=== PATIENT | male | born 1930 | race Caucasian/White ===

== ENCOUNTER → 2016-04-09 | Outpatient (CLI) | payer OTHER ==
[~2016-04-09] MED LIST: POTA10IN PO; TAMS0.4C36 PO; TRAV0.00 EACHEYE
[2016-04-09 07:32] LABS: BUN/Creatinine Ratio 16.9; Calcium 9.2 mg/dL (8.5-10.1); Potassium 4.1 mmol/L (3.5-5.1)
== END | disposition home or self-care (01) ==
LOC: LAB 06:44
PROVIDERS: ATTEND Internal Medicine
DX: E05.80 Other thyrotoxicosis without thyrotoxic crisis or storm (principal)
CPT/HCPCS: 36415; 80048; 83036; 84443

== ENCOUNTER → 2017-01-16 | Outpatient (CLI) | payer OTHER ==
[~2017-01-16] VITALS: Ht 170.2 cm; Wt 70.8 kg
[~2017-01-16] MED LIST changes: +ADENOSINE 60 MG in GIVE UN-DILUTED 0 ML IV ONE; +ASPI-231 PO; +ATO40T PO; +CLOP75TA41 PO; +FURO20TA3 PO; +METF-370 PO; +METO25TA5 PO; +METR500T PO; +POTA-167 PO; -POTA10IN PO; -TAMS0.4C36 PO
== END | disposition home or self-care (01) ==
LOC: XY 07:45
PROVIDERS: ATTEND Internal Medicine Cardiovascular Disease
DX: I20.9 Angina pectoris, unspecified (principal); E11.9 Type 2 diabetes mellitus without complications; I50.9 Heart failure, unspecified
CPT/HCPCS: 78452; 93017; A9500; J0153

== ENCOUNTER → 2017-03-18 | Outpatient (CLI) | payer OTHER ==
[~2017-03-18] MED LIST changes: -ADENOSINE 60 MG in GIVE UN-DILUTED 0 ML IV ONE
[2017-03-18 11:54] LABS: Basophils # (auto) 0.1 uL; Eosinophils # (auto) 0.5 uL; Eosinophils % (auto) 5.7 % (0.0-7.0); Hemoglobin 11.1 g/dL (13.5-17.5); Lymphocytes # (auto) 1.9 uL; Lymphocytes % (auto) 21.4 % (10.0-50.0); Mean Corpuscular Hemoglobin 31.9 pg (28.0-32.0); Mean Corpuscular Hgb Conc. 33.8 g/dL (32.0-36.0); Mean Corpuscular Volume 94.6 fL (80.0-100.0); Monocytes # (auto) 0.6 uL; Monocytes % (auto) 6.5 % (0.0-12.0); Neutrophils # (auto) 5.8 uL; Neutrophils % (auto) 65.4 % (37.0-80.0); Platelet Count (auto) 432 10^3/uL (140-450); Red Blood Cells 3.49 10^6/uL (4.5-5.90); Red Cell Distribution Width 14.7 % (11.8-14.3); White Blood Cell 8.8 10^3/uL (4.4-10.8)
== END | disposition home or self-care (01) ==
LOC: LAB 09:53
PROVIDERS: ATTEND Internal Medicine Cardiovascular Disease
DX: I20.9 Angina pectoris, unspecified (principal); R53.1 Weakness
CPT/HCPCS: 36415; 84443; 85025

== ENCOUNTER → 2017-04-09 | Outpatient (CLI) | payer OTHER ==
[2017-04-09 09:12] LABS: Basophils # (auto) 0.1 uL; Eosinophils % (auto) 9.8 % (0.0-7.0); Hematocrit 36.3 % (41.0-53.0); Hemoglobin 12.1 g/dL (13.5-17.5); Lymphocytes # (auto) 2.4 uL; Lymphocytes % (auto) 23.5 % (10.0-50.0); Mean Corpuscular Hemoglobin 31.6 pg (28.0-32.0); Mean Corpuscular Hgb Conc. 33.3 g/dL (32.0-36.0); Monocytes % (auto) 9.9 % (0.0-12.0); Neutrophils # (auto) 5.7 uL; Neutrophils % (auto) 55.8 % (37.0-80.0); Nucleated Red Blood Cells % 0.1 %; Platelet Count (auto) 266 10^3/uL (140-450); Red Blood Cells 3.82 10^6/uL (4.5-5.90); Red Cell Distribution Width 15.2 % (11.8-14.3); White Blood Cell 10.1 10^3/uL (4.4-10.8)
[2017-04-09 09:25] LABS: BUN/Creatinine Ratio 14.2; Calcium 9.2 mg/dL (8.5-10.1); Potassium 4.6 mmol/L (3.5-5.1)
[2017-04-09 10:20] LABS: Free T4 (Free Thyroxine) 1.07 ng/dL (0.89-1.76); T3 Total 0.99 ng/mL (0.60-1.81)
== END | disposition home or self-care (01) ==
LOC: LAB 07:50
PROVIDERS: ATTEND Internal Medicine
DX: I25.10 Atherosclerotic heart disease of native coronary artery without angina pectoris (principal); R53.1 Weakness
CPT/HCPCS: 36415; 80048; 84439; 84480; 85025

== ENCOUNTER → 2017-07-09 | Outpatient (CLI) | payer OTHER ==
[2017-07-09 08:06] LABS: Basophils # (auto) 0.1 uL; Eosinophils # (auto) 0.5 uL; Eosinophils % (auto) 4.9 % (0.0-7.0); Hematocrit 35.3 % (41.0-53.0); Hemoglobin 12.2 g/dL (13.5-17.5); Lymphocytes # (auto) 1.7 uL; Lymphocytes % (auto) 15.8 % (10.0-50.0); Mean Corpuscular Hemoglobin 32.3 pg (28.0-32.0); Mean Corpuscular Hgb Conc. 34.6 g/dL (32.0-36.0); Mean Corpuscular Volume 93.3 fL (80.0-100.0); Monocytes # (auto) 0.9 uL; Monocytes % (auto) 8.1 % (0.0-12.0); Neutrophils # (auto) 7.4 uL; Neutrophils % (auto) 70.2 % (37.0-80.0); Platelet Count (auto) 261 10^3/uL (140-450); Red Blood Cells 3.78 10^6/uL (4.5-5.90); Red Cell Distribution Width 14.9 % (11.8-14.3); White Blood Cell 10.5 10^3/uL (4.4-10.8)
[2017-07-09 09:09] LABS: Albumin 3.8 g/dL (3.4-5.0); BUN/Creatinine Ratio 14.2; Bilirubin, Total 1.5 mg/dL (0.2-1.0); Potassium 4.4 mmol/L (3.5-5.1); Total Protein 7.4 g/dL (6.4-8.2)
== END | disposition home or self-care (01) ==
LOC: LAB 07:15
PROVIDERS: ATTEND Internal Medicine
DX: E11.22 Type 2 diabetes mellitus with diabetic chronic kidney disease (principal); I12.9 Hypertensive chronic kidney disease with stage 1 through stage 4 chronic kidney disease, or unspecified chronic kidney disease; N18.9 Chronic kidney disease, unspecified; R19.7 Diarrhea, unspecified; Z79.82 Long term (current) use of aspirin
CPT/HCPCS: 36415; 80053; 83036; 85025

== ENCOUNTER → 2017-07-15 | Outpatient (CLI) | payer OTHER | END | disposition home or self-care (01) | LOC: LAB 09:00 | PROVIDERS: ATTEND Physician Assistant | DX: L57.0 Actinic keratosis (principal) ==

== ENCOUNTER → 2017-10-15 | Outpatient (CLI) | payer OTHER ==
[2017-10-16 11:21] LABS: Hepatitis A Ab IgM Negative
[2017-10-16 11:22] LABS: Hepatitis B Core IgM Negative; Hepatitis B Surface Antigen Negative (Negative); Hepatitis C Antibody Negative (Negative)
== END | disposition home or self-care (01) ==
LOC: LAB 07:11
PROVIDERS: ATTEND Internal Medicine
DX: E11.9 Type 2 diabetes mellitus without complications (principal); E78.5 Hyperlipidemia, unspecified; I11.0 Hypertensive heart disease with heart failure; I25.10 Atherosclerotic heart disease of native coronary artery without angina pectoris; I50.9 Heart failure, unspecified; E03.9 Hypothyroidism, unspecified; Z86.73 Personal history of transient ischemic attack (TIA), and cerebral infarction without residual deficits
CPT/HCPCS: 36415; 80074; 84443

== ENCOUNTER → 2017-11-24 | Outpatient (CLI) | payer OTHER ==
[2017-11-24 09:01] LABS: Albumin 3.6 g/dL (3.4-5.0); Bilirubin, Direct 0.2 mg/dL (0-0.2); Bilirubin, Total 0.8 mg/dL (0.2-1.0); Total Protein 7.5 g/dL (6.4-8.2)
== END | disposition home or self-care (01) ==
LOC: LAB 07:24
PROVIDERS: ATTEND Internal Medicine
DX: E11.9 Type 2 diabetes mellitus without complications (principal); I50.9 Heart failure, unspecified; F41.9 Anxiety disorder, unspecified; F32.9 Major depressive disorder, single episode, unspecified; Z87.891 Personal history of nicotine dependence
CPT/HCPCS: 36415; 80076; 83036

== ENCOUNTER → 2018-05-14 | Outpatient (CLI) | payer OTHER ==
[2018-05-14 09:13] LABS: Urine Bacteria FEW /hpf (None Seen); Urine Blood Negative /uL (Negative); Urine Specific Gravity 1.015 (1.001-1.035); Urine WBC 1 /hpf (0 - 3)
[2018-05-14 09:26] LABS: Albumin 3.4 g/dL (3.4-5.0); Calcium 8.7 mg/dL (8.5-10.1); Potassium 4.2 mmol/L (3.5-5.1)
[2018-05-14 09:32] LABS: BUN/Creatinine Ratio 13.5; Bilirubin, Total 1.1 mg/dL (0.2-1.0); Total Protein 7.3 g/dL (6.4-8.2)
== END | disposition home or self-care (01) ==
LOC: LAB 08:30
PROVIDERS: ATTEND Internal Medicine
DX: E11.22 Type 2 diabetes mellitus with diabetic chronic kidney disease (principal); N18.9 Chronic kidney disease, unspecified; I25.10 Atherosclerotic heart disease of native coronary artery without angina pectoris
CPT/HCPCS: 36415; 80053; 80061; 81001; 83036; 84443

== ENCOUNTER → 2018-06-16 | Outpatient (CLI) | payer OTHER | END | disposition home or self-care (01) | LOC: LAB 07:56 | PROVIDERS: ATTEND Urology | DX: N40.0 Benign prostatic hyperplasia without lower urinary tract symptoms (principal) | CPT/HCPCS: 87086 ==

== ENCOUNTER 2018-06-20 19:22 | Emergency (ER) | payer OTHER ==
[~2018-06-20] VITALS: Ht 170.2 cm; Wt 65.8 kg
[2018-06-21] MEDS ORDERED: fentaNYL CITRATE 100 MCG/2 ML VL IV ONE (00:45)
[2018-06-21] MEDS ORDERED: KETOROLAC TROMETH 30 MG/ML 1ML VIAL IV ONE (00:45)
[2018-06-21 03:16] LABS: Basophils # (auto) 0.1 uL; Basophils % (auto) 0.7 % (0.0-2.0); Eosinophils # (auto) 0.3 uL; Eosinophils % (auto) 1.9 % (0.0-7.0); Hematocrit 33.3 % (41.0-53.0); Hemoglobin 11.2 g/dL (13.5-17.5); Lymphocytes # (auto) 1.8 uL; Lymphocytes % (auto) 13.4 % (10.0-50.0); Mean Corpuscular Hemoglobin 31.7 pg (28.0-32.0); Mean Corpuscular Hgb Conc. 33.8 g/dL (32.0-36.0); Mean Corpuscular Volume 93.8 fL (80.0-100.0); Monocytes # (auto) 1.1 uL; Monocytes % (auto) 8.2 % (0.0-12.0); Neutrophils # (auto) 10.4 uL; Neutrophils % (auto) 75.8 % (37.0-80.0); Platelet Count (auto) 253 10^3/uL (140-450); Red Blood Cells 3.55 10^6/uL (4.5-5.90); Red Cell Distribution Width 14.9 % (11.8-14.3); White Blood Cell 13.8 10^3/uL (4.4-10.8)
[2018-06-21 03:21] LABS: INR 1.01 (0.9-1.15); Partial Thromboplastin Time 25.7 sec (23.78-33.04); Prothrombin Time 10.8 sec (9.27-12.13)
[2018-06-21 03:25] LABS: Albumin 4.1 g/dL (3.4-5.0); Anion Gap 10 (5-15); Blood Urea Nitrogen 30 mg/dL (7-18); Calcium 8.9 mg/dL (8.5-10.1); Carbon Dioxide 22 mmol/L (21-32); Chloride 108 mmol/L (98-107); Glucose 118 mg/dL (74-106); Potassium 4.3 mmol/L (3.5-5.1); Sodium 140 mmol/L (136-145)
[2018-06-21 03:32] LABS: Alanine Aminotransferase 23 U/L (16-61); Alkaline Phosphatase 76 U/L (45-117); Aspartate Aminotransferase 21 U/L (15-37); BUN/Creatinine Ratio 16.8; Bilirubin, Total 1.1 mg/dL (0.2-1.0); GFR African American 46 mL/min; GFR Non-African American 38 mL/min; Total Protein 7.7 g/dL (6.4-8.2)
[2018-06-21 04:35] VITALS: BP 128/62
== END 2018-06-21 05:05 | disposition short-term general hospital (02) ==
LOC: ER 19:22
DX: S42.92XA Fracture of left shoulder girdle, part unspecified, initial encounter for closed fracture (principal); I11.0 Hypertensive heart disease with heart failure; I50.9 Heart failure, unspecified; I25.2 Old myocardial infarction; E11.9 Type 2 diabetes mellitus without complications; Z86.73 Personal history of transient ischemic attack (TIA), and cerebral infarction without residual deficits; Z90.49 Acquired absence of other specified parts of digestive tract; Z95.0 Presence of cardiac pacemaker; Z98.61 Coronary angioplasty status; Z79.899 Other long term (current) drug therapy; W01.0XXA Fall on same level from slipping, tripping and stumbling without subsequent striking against object, initial encounter; Y93.89 Activity, other specified; Y99.8 Other external cause status; Y92.89 Other specified places as the place of occurrence of the external cause
CPT/HCPCS: 36415; 73030; 73200; 80053; 83880; 84484; 85025; 85610; 85730; 93005; 96374; 96375; 99285; J1885; J3010; 81025

== ENCOUNTER 2018-08-19 16:42 | Emergency (ER) | payer OTHER ==
[~2018-08-19] VITALS: Ht 170.2 cm; Wt 61.2 kg
[2018-08-19] MEDS ORDERED: SODIUM CHLORIDE 0.9% 1,000 ML IV ONE (17:07)
[2018-08-19 17:17] LABS: Basophils # (auto) 0.1 uL; Basophils % (auto) 0.7 % (0.0-2.0); Eosinophils # (auto) 0.3 uL; Eosinophils % (auto) 3.2 % (0.0-7.0); Hematocrit 30.5 % (41.0-53.0); Hemoglobin 10.5 g/dL (13.5-17.5); Lymphocytes # (auto) 1.6 uL; Lymphocytes % (auto) 17.4 % (10.0-50.0); Mean Corpuscular Hemoglobin 32.3 pg (28.0-32.0); Mean Corpuscular Hgb Conc. 34.2 g/dL (32.0-36.0); Mean Corpuscular Volume 94.3 fL (80.0-100.0); Monocytes % (auto) 10.5 % (0.0-12.0); Neutrophils # (auto) 6.3 uL; Neutrophils % (auto) 68.2 % (37.0-80.0); Platelet Count (auto) 305 10^3/uL (140-450); Red Blood Cells 3.23 10^6/uL (4.5-5.90); Red Cell Distribution Width 14.3 % (11.8-14.3); White Blood Cell 9.2 10^3/uL (4.4-10.8)
[2018-08-19 17:31] LABS: INR 1.01 (0.9-1.15); Partial Thromboplastin Time 26.8 sec (23.64-32.05)
[2018-08-19 17:34] LABS: Albumin 3.5 g/dL (3.4-5.0); Anion Gap 11 (5-15); Calcium 8.8 mg/dL (8.5-10.1); Carbon Dioxide 24 mmol/L (21-32); Chloride 105 mmol/L (98-107); Glucose 81 mg/dL (74-106); Magnesium 2.3 mg/dL (1.6-2.6); Sodium 140 mmol/L (136-145)
[2018-08-19 17:41] LABS: Alanine Aminotransferase 18 U/L (16-61); Alkaline Phosphatase 107 U/L (45-117); Aspartate Aminotransferase 18 U/L (15-37); BUN/Creatinine Ratio 13.6; Bilirubin, Total 0.8 mg/dL (0.2-1.0); Blood Urea Nitrogen 22 mg/dL (7-18); GFR African American 52 mL/min; GFR Non-African American 43 mL/min; Total Protein 7.9 g/dL (6.4-8.2)
[2018-08-19 19:35] VITALS: BP 114/45
== END 2018-08-19 19:45 | disposition home or self-care (01) ==
LOC: ER 16:51
DX: I95.9 Hypotension, unspecified (principal); E86.0 Dehydration; I11.0 Hypertensive heart disease with heart failure; I50.9 Heart failure, unspecified; E11.9 Type 2 diabetes mellitus without complications; E78.00 Pure hypercholesterolemia, unspecified; I25.10 Atherosclerotic heart disease of native coronary artery without angina pectoris; I25.2 Old myocardial infarction; Z86.73 Personal history of transient ischemic attack (TIA), and cerebral infarction without residual deficits; Z86.2 Personal history of diseases of the blood and blood-forming organs and certain disorders involving the immune mechanism; Z95.0 Presence of cardiac pacemaker; Z98.61 Coronary angioplasty status; Z79.82 Long term (current) use of aspirin; Z79.899 Other long term (current) drug therapy
CPT/HCPCS: 36415; 71046; 80053; 83735; 83880; 84484; 85025; 85610; 85730; 93005; 94761; 96360

== ENCOUNTER → 2018-09-17 | Outpatient (CLI) | payer OTHER | END | disposition home or self-care (01) | LOC: LAB 13:21 | PROVIDERS: ATTEND Internal Medicine | DX: E11.22 Type 2 diabetes mellitus with diabetic chronic kidney disease (principal); N18.2 Chronic kidney disease, stage 2 (mild); I42.9 Cardiomyopathy, unspecified; I50.9 Heart failure, unspecified | CPT/HCPCS: 36415; 82270; 83036; 84443 ==

== ENCOUNTER 2018-10-09 12:16 | Emergency (ER) | payer OTHER ==
[~2018-10-09] VITALS: Ht 167.6 cm; Wt 72.6 kg
[~2018-10-09 12:16] MED LIST changes: -ATO40T PO; +FERR-7 PO; -FURO20TA3 PO; +LATA0.0015 EACHEYE; +LEV50T PO; +LEVO750T2 PO; -METO25TA5 PO; -METR500T PO; -POTA-167 PO; +TAMS0.4C36 PO
[2018-10-09 13:13] LABS: Basophils # (auto) 0.1 uL; Basophils % (auto) 0.7 % (0.0-2.0); Eosinophils # (auto) 0.4 uL; Eosinophils % (auto) 4.9 % (0.0-7.0); Hematocrit 28.3 % (41.0-53.0); Hemoglobin 9.6 g/dL (13.5-17.5); Lymphocytes # (auto) 1.4 uL; Lymphocytes % (auto) 17.6 % (10.0-50.0); Mean Corpuscular Hemoglobin 31.2 pg (28.0-32.0); Mean Corpuscular Hgb Conc. 33.8 g/dL (32.0-36.0); Mean Corpuscular Volume 92.3 fL (80.0-100.0); Monocytes % (auto) 11.9 % (0.0-12.0); Neutrophils # (auto) 5.3 uL; Neutrophils % (auto) 64.9 % (37.0-80.0); Platelet Count (auto) 275 10^3/uL (140-450); Red Blood Cells 3.07 10^6/uL (4.5-5.90); Red Cell Distribution Width 14.7 % (11.8-14.3); White Blood Cell 8.1 10^3/uL (4.4-10.8)
[2018-10-09 13:35] LABS: Albumin 2.7 g/dL (3.4-5.0); BUN/Creatinine Ratio 12.6; Calcium 8.1 mg/dL (8.5-10.1); Potassium 3.6 mmol/L (3.5-5.1)
[2018-10-09 13:38] LABS: Bilirubin, Total 0.9 mg/dL (0.2-1.0); Total Protein 6.4 g/dL (6.4-8.2)
[2018-10-09 13:52] LABS: Urine Bacteria FEW /hpf (None Seen); Urine Blood 2+ /uL (Negative); Urine Mucus FEW (None Seen); Urine WBC 38 /hpf (0 - 3)
[2018-10-09] MEDS ORDERED: cefTRIAXone 1GM/50ML D5W 50 ML IV ONE (15:45)
[2018-10-09 16:57] VITALS: BP 126/55
== END 2018-10-09 17:40 | disposition home or self-care (01) ==
LOC: EDUNIT# 12:16 → EDBD 12:16 → ER 12:27
DX: N39.0 Urinary tract infection, site not specified (principal); E11.9 Type 2 diabetes mellitus without complications; I25.2 Old myocardial infarction; I50.9 Heart failure, unspecified; Z86.73 Personal history of transient ischemic attack (TIA), and cerebral infarction without residual deficits; Z90.49 Acquired absence of other specified parts of digestive tract; Z98.61 Coronary angioplasty status; Z79.899 Other long term (current) drug therapy
CPT/HCPCS: 36415; 74176; 80053; 81001; 85025; 93005; 94761; 99284; J0696

== ENCOUNTER 2018-10-11 16:24 | Inpatient (IN) | payer OTHER ==
[~2018-10-11] VITALS: Ht 167.6 cm; Wt 64.3 kg
[2018-10-11] MEDS ORDERED: SODIUM CHLORIDE 0.9% 1,000 ML IVB ONE (17:37)
[2018-10-11 17:43] LABS: Basophils # (auto) 0.1 uL; Basophils % (auto) 0.7 % (0.0-2.0); Eosinophils # (auto) 0.2 uL; Eosinophils % (auto) 2.7 % (0.0-7.0); Hematocrit 29.4 % (41.0-53.0); Hemoglobin 9.6 g/dL (13.5-17.5); Lymphocytes # (auto) 1.4 uL; Lymphocytes % (auto) 15.8 % (10.0-50.0); Mean Corpuscular Hgb Conc. 32.8 g/dL (32.0-36.0); Mean Corpuscular Volume 94.5 fL (80.0-100.0); Monocytes % (auto) 11.2 % (0.0-12.0); Neutrophils # (auto) 6.3 uL; Neutrophils % (auto) 69.6 % (37.0-80.0); Nucleated Red Blood Cells % 0.1 %; Platelet Count (auto) 298 10^3/uL (140-450); Red Blood Cells 3.11 10^6/uL (4.5-5.90); Red Cell Distribution Width 14.9 % (11.8-14.3); White Blood Cell 9.1 10^3/uL (4.4-10.8)
[2018-10-11 18:00] LABS: Alanine Aminotransferase 21 U/L (16-61); Anion Gap 10 (5-15); Blood Urea Nitrogen 21 mg/dL (7-18); Calcium 8.3 mg/dL (8.5-10.1); Carbon Dioxide 21 mmol/L (21-32); Chloride 108 mmol/L (98-107); Glucose 109 mg/dL (74-106); Magnesium 2.3 mg/dL (1.6-2.6); Potassium 3.8 mmol/L (3.5-5.1); Sodium 139 mmol/L (136-145)
[2018-10-11 18:05] LABS: Alkaline Phosphatase 87 U/L (45-117); Aspartate Aminotransferase 22 U/L (15-37); BUN/Creatinine Ratio 13.2; Bilirubin, Total 0.8 mg/dL (0.2-1.0); GFR African American 53 mL/min; GFR Non-African American 44 mL/min; Total Protein 6.9 g/dL (6.4-8.2)
[2018-10-11 18:13] LABS: INR 1.08 (0.9-1.15); Partial Thromboplastin Time 28.9 sec (23.64-32.05)
[2018-10-11 18:37] LABS: Urine Bacteria MANY /hpf (None Seen); Urine Blood 3+ /uL (Negative); Urine Mucus FEW (None Seen); Urine Specific Gravity 1.018 (1.001-1.035); Urine WBC 34 /hpf (0 - 3)
[2018-10-11] MEDS ORDERED: cefTRIAXone 1GM/50ML D5W 50 ML IV ONE (19:30)
[2018-10-11] MEDS ORDERED: NITROGLYCERIN 0.4 MG SL TAB SL PRN (20:00)
[2018-10-11] MEDS ORDERED: MORPHINE SULF INJ 2 MG/ML SYRINGE 1ML IV PRN ×2 (20:00)
[2018-10-11] MEDS ORDERED: ONDANSETRON HCL 4 MG/2 ML VIAL IV PRN (20:00)
[2018-10-11] MEDS ORDERED: ACETAMINOPHEN 500 MG TAB PO PRN (20:00)
[2018-10-11] MEDS: DOXYCYCLINE 100MG/250ML 250 ML IV SCH (20:00)
[2018-10-11] MEDS ORDERED: DEXTROSE (50%) 50ML SYRG IV PRN (20:15)
[2018-10-11] MEDS: SODIUM CHLORIDE 0.9% 1,000 ML IV SCH (20:44)
[2018-10-11 21:46] VITALS: BP 128/45
[2018-10-11] MEDS: InsuLIN REG 1unit/0.01ml Soln (100units/ml) SC SCH (22:00)
[2018-10-11] MEDS: ACCU-CHEK COMFORT CURVE STRIP VI SCH (22:04)
[2018-10-11 23:54] VITALS: BP 127/71
[2018-10-12] MEDS: HYDROcodone-ACET 5/325MG TAB PO PRN (01:42)
[2018-10-12 05:13] VITALS: BP 109/47
[2018-10-12] MEDS: IPRATROPIUM BROM 0.5 MG/2.5ML INH SOL NEB SCH ×3 (05:55→19:21)
[2018-10-12] MEDS: ALBUTEROL SULF 2.5 MG/0.5ML(0.5%) NEB SOLN NEB SCH ×3 (05:55→19:21)
[2018-10-12] MEDS: LEVOTHYROXINE SODIUM 50 MCG TAB PO SCH ×2 (06:04→09:44)
[2018-10-12 06:13] LABS: Basophils # (auto) 0.1 uL; Eosinophils # (auto) 0.3 uL; Lymphocytes # (auto) 1.7 uL; Monocytes # (auto) 0.8 uL; Neutrophils # (auto) 2.8 uL
[2018-10-12 06:15] LABS: Eosinophils % (auto) 5.5 % (0.0-7.0); Hematocrit 24.9 % (41.0-53.0); Hemoglobin 8.5 g/dL (13.5-17.5); Lymphocytes % (auto) 30.4 % (10.0-50.0); Mean Corpuscular Hemoglobin 31.6 pg (28.0-32.0); Mean Corpuscular Hgb Conc. 34.1 g/dL (32.0-36.0); Mean Corpuscular Volume 92.9 fL (80.0-100.0); Monocytes % (auto) 13.2 % (0.0-12.0); Neutrophils % (auto) 49.9 % (37.0-80.0); Platelet Count (auto) 247 10^3/uL (140-450); Red Blood Cells 2.68 10^6/uL (4.5-5.90); Red Cell Distribution Width 14.3 % (11.8-14.3); White Blood Cell 5.7 10^3/uL (4.4-10.8)
[2018-10-12 06:45] LABS: BUN/Creatinine Ratio 13.4; Calcium 7.7 mg/dL (8.5-10.1); Potassium 3.5 mmol/L (3.5-5.1)
[2018-10-12] MEDS: ACCU-CHEK COMFORT CURVE STRIP VI SCH ×4 (06:49→21:35)
[2018-10-12] MEDS: SODIUM CHLORIDE 0.9% 1,000 ML IV SCH ×2 (06:49→15:54)
[2018-10-12] MEDS: InsuLIN REG 1unit/0.01ml Soln (100units/ml) SC SCH ×4 (06:49→21:32)
[2018-10-12] MEDS: DOXYCYCLINE 100MG/250ML 250 ML IV SCH ×2 (08:42→20:13)
[2018-10-12 09:00] VITALS: BP 113/53
[2018-10-12] MEDS ORDERED: POTASSIUM CHL 20 Meq TABLET PO ONE (09:30)
[2018-10-12] MEDS: FAMOTIDINE 20 MG TAB PO SCH (09:44)
[2018-10-12] MEDS: cefTRIAXone 1GM/50ML D5W 50 ML IV SCH (09:44)
[2018-10-12 13:00] VITALS: BP 112/59
[2018-10-12 16:31] VITALS: BP 97/51
[2018-10-12] MEDS: OPTH EACHEYE SCH (18:00)
[2018-10-12] MEDS: TRAVOPROST 0.004% EACHEYE SCH (18:00)
[2018-10-12] MEDS: LATANOPROST 0.005 % OPTH(EYE) SOL 2.5ML EACHEYE SCH (21:34)
[2018-10-12 22:00] VITALS: BP 121/59
[2018-10-13] MEDS: SODIUM CHLORIDE 0.9% 1,000 ML IV SCH ×2 (04:54→13:00)
[2018-10-13 06:00] VITALS: BP 106/44
[2018-10-13] MEDS: IPRATROPIUM BROM 0.5 MG/2.5ML INH SOL NEB SCH ×3 (06:15→19:18)
[2018-10-13] MEDS: ALBUTEROL SULF 2.5 MG/0.5ML(0.5%) NEB SOLN NEB SCH ×3 (06:15→19:18)
[2018-10-13 06:17] LABS: Basophils # (auto) 0.1 uL; Basophils % (auto) 1.3 % (0.0-2.0); Eosinophils # (auto) 0.3 uL; Eosinophils % (auto) 5.5 % (0.0-7.0); Hematocrit 25.8 % (41.0-53.0); Hemoglobin 8.7 g/dL (13.5-17.5); Lymphocytes # (auto) 1.4 uL; Mean Corpuscular Hemoglobin 31.2 pg (28.0-32.0); Mean Corpuscular Hgb Conc. 33.8 g/dL (32.0-36.0); Mean Corpuscular Volume 92.4 fL (80.0-100.0); Monocytes # (auto) 0.7 uL; Monocytes % (auto) 11.4 % (0.0-12.0); Neutrophils # (auto) 3.4 uL; Neutrophils % (auto) 57.8 % (37.0-80.0); Platelet Count (auto) 246 10^3/uL (140-450); Red Blood Cells 2.79 10^6/uL (4.5-5.90); Red Cell Distribution Width 14.4 % (11.8-14.3)
[2018-10-13] MEDS: ACCU-CHEK COMFORT CURVE STRIP VI SCH ×4 (06:35→21:33)
[2018-10-13] MEDS: InsuLIN REG 1unit/0.01ml Soln (100units/ml) SC SCH ×4 (06:35→21:33)
[2018-10-13 07:03] LABS: Potassium 3.8 mmol/L (3.5-5.1)
[2018-10-13 07:24] LABS: Calcium 7.7 mg/dL (8.5-10.1); Magnesium 2.2 mg/dL (1.6-2.6)
[2018-10-13] MEDS: DOXYCYCLINE 100MG/250ML 250 ML IV SCH ×2 (08:00→20:08)
[2018-10-13 09:00] VITALS: BP 130/71
[2018-10-13] MEDS ORDERED: ADENOSINE 54 MG in GIVE UN-DILUTED 0 ML IV STA (09:54)
[2018-10-13] MEDS: FAMOTIDINE 20 MG TAB PO SCH (10:00)
[2018-10-13] MEDS: cefTRIAXone 1GM/50ML D5W 50 ML IV SCH (10:00)
[2018-10-13] MEDS: LEVOTHYROXINE SODIUM 50 MCG TAB PO SCH (10:00)
[2018-10-13] MEDS: HYDROcodone-ACET 5/325MG TAB PO PRN ×2 (12:00→19:29)
[2018-10-13 13:00] VITALS: BP 127/63
[2018-10-13 17:00] VITALS: BP 130/61
[2018-10-13] MEDS: TRAVOPROST 0.004% EACHEYE SCH (18:00)
[2018-10-13] MEDS: OPTH EACHEYE SCH (18:00)
[2018-10-13] MEDS: LATANOPROST 0.005 % OPTH(EYE) SOL 2.5ML EACHEYE SCH (21:19)
[2018-10-13 22:00] VITALS: BP 118/60
[2018-10-14] MEDS: SODIUM CHLORIDE 0.9% 1,000 ML IV SCH ×2 (03:18→17:33)
[2018-10-14 05:00] VITALS: BP 118/62
[2018-10-14 05:58] LABS: Hematocrit 27.1 % (41.0-53.0); Hemoglobin 9.3 g/dL (13.5-17.5)
[2018-10-14] MEDS: IPRATROPIUM BROM 0.5 MG/2.5ML INH SOL NEB SCH ×3 (06:02→19:26)
[2018-10-14] MEDS: ALBUTEROL SULF 2.5 MG/0.5ML(0.5%) NEB SOLN NEB SCH ×3 (06:02→19:26)
[2018-10-14] MEDS: ACCU-CHEK COMFORT CURVE STRIP VI SCH ×4 (06:24→22:16)
[2018-10-14] MEDS: InsuLIN REG 1unit/0.01ml Soln (100units/ml) SC SCH ×4 (06:24→22:00)
[2018-10-14 08:00] VITALS: BP 118/65
[2018-10-14] MEDS: DOXYCYCLINE 100MG/250ML 250 ML IV SCH ×2 (08:21→22:15)
[2018-10-14] MEDS ORDERED: ADENOSINE 57 MG in GIVE UN-DILUTED 0 ML IV ONE (08:45)
[2018-10-14 09:00] VITALS: BP 118/67
[2018-10-14] MEDS: FAMOTIDINE 20 MG TAB PO SCH (10:25)
[2018-10-14] MEDS: cefTRIAXone 1GM/50ML D5W 50 ML IV SCH (10:25)
[2018-10-14] MEDS: LEVOTHYROXINE SODIUM 50 MCG TAB PO SCH (10:25)
[2018-10-14 13:00] VITALS: BP 129/66
[2018-10-14] MEDS ORDERED: SENNA 8.6 MG TAB PO ONE (13:00)
[2018-10-14] MEDS ORDERED: LACTULOSE 20Gm/30ML SOLN PO ONE (13:00)
[2018-10-14 17:34] VITALS: BP 111/74
[2018-10-14] MEDS: OPTH EACHEYE SCH (17:54)
[2018-10-14] MEDS: TRAVOPROST 0.004% EACHEYE SCH (17:54)
[2018-10-14 22:00] VITALS: BP 117/57
[2018-10-14] MEDS: LATANOPROST 0.005 % OPTH(EYE) SOL 2.5ML EACHEYE SCH (22:15)
[2018-10-15] VITALS (8 sets, daily range): BP systolic 123–154; BP diastolic 65–77
[2018-10-15] MEDS: InsuLIN REG 1unit/0.01ml Soln (100units/ml) SC SCH ×4 (05:40→21:51)
[2018-10-15] MEDS: ACCU-CHEK COMFORT CURVE STRIP VI SCH ×4 (05:41→21:51)
[2018-10-15 06:52] LABS: Basophils # (auto) 0.1 uL; Basophils % (auto) 0.7 % (0.0-2.0); Eosinophils # (auto) 0.4 uL; Eosinophils % (auto) 3.3 % (0.0-7.0); Hematocrit 27.3 % (41.0-53.0); Hemoglobin 9.1 g/dL (13.5-17.5); Lymphocytes # (auto) 1.7 uL; Lymphocytes % (auto) 15.2 % (10.0-50.0); Mean Corpuscular Hemoglobin 30.6 pg (28.0-32.0); Mean Corpuscular Hgb Conc. 33.4 g/dL (32.0-36.0); Mean Corpuscular Volume 91.7 fL (80.0-100.0); Monocytes # (auto) 1.2 uL; Monocytes % (auto) 10.8 % (0.0-12.0); Neutrophils # (auto) 7.7 uL; Platelet Count (auto) 282 10^3/uL (140-450); Red Blood Cells 2.98 10^6/uL (4.5-5.90); Red Cell Distribution Width 14.4 % (11.8-14.3); White Blood Cell 11.1 10^3/uL (4.4-10.8)
[2018-10-15] MEDS: IPRATROPIUM BROM 0.5 MG/2.5ML INH SOL NEB SCH ×3 (06:53→19:10)
[2018-10-15] MEDS: ALBUTEROL SULF 2.5 MG/0.5ML(0.5%) NEB SOLN NEB SCH ×3 (06:54→19:10)
[2018-10-15 07:17] LABS: INR 1.07 (0.9-1.15); Partial Thromboplastin Time 31.7 sec (23.64-32.05)
[2018-10-15 07:20] LABS: Potassium 3.7 mmol/L (3.5-5.1)
[2018-10-15] MEDS: DOXYCYCLINE 100MG/250ML 250 ML IV SCH ×2 (07:42→20:29)
[2018-10-15] MEDS: SODIUM CHLORIDE 0.9% 1,000 ML IV SCH ×2 (07:43→22:12)
[2018-10-15] MEDS ORDERED: CIPROFLOXACIN 400MG/200ML 200 ML IV ONE (08:56)
[2018-10-15] MEDS ORDERED: ETOMIDATE (2MG/ML) 20ML VIAL IV ONE (09:54)
[2018-10-15] MEDS ORDERED: MIDAZOLAM HCL 1MG/1ML-2 ML VIAL ONE (09:54)
[2018-10-15] MEDS ORDERED: LIDOCAINE 2% (LOCAL ANESTH.) PF 5ml SDV ONE (09:55)
[2018-10-15] MEDS ORDERED: ROCURONIUM 10MG/ML 10ML VIAL IV ONE (09:55)
[2018-10-15] MEDS: FAMOTIDINE 20 MG TAB PO SCH (09:59)
[2018-10-15] MEDS: LEVOTHYROXINE SODIUM 50 MCG TAB PO SCH (09:59)
[2018-10-15] MEDS ORDERED: fentaNYL CITRATE 100 MCG/2 ML VL ONE (10:10)
[2018-10-15] MEDS ORDERED: ONDANSETRON HCL 4 MG/2 ML VIAL IV PRN (10:15)
[2018-10-15] MEDS ORDERED: HYDROmorphone HCL 2 MG/ML VL IV PRN (10:15)
[2018-10-15] MEDS ORDERED: NALOXONE HCL 0.4 MG/ML VIAL IV PRN (10:15)
[2018-10-15] MEDS ORDERED: ACCU-CHEK COMFORT CURVE STRIP VI ONE (10:15)
[2018-10-15] MEDS ORDERED: ePHEDrine SULFATE 50 MG/ML AMP ONE (10:30)
[2018-10-15] MEDS ORDERED: SODIUM CHLORIDE LOCK 10 ML ONE (10:30)
[2018-10-15] MEDS ORDERED: METOCLOPRAMIDE HCL 5MG/ml INJ 2ml VIAL ONE (10:30)
[2018-10-15] MEDS ORDERED: FERROUS SULFATE 325 MG TAB PO ONE (12:30)
[2018-10-15] MEDS ORDERED: FERROUS SULFATE 325 MG TAB PO SCH (12:30)
[2018-10-15] MEDS: cefTRIAXone 1GM/50ML D5W 50 ML IV SCH (12:41)
[2018-10-15] MEDS ORDERED: LACTULOSE 20Gm/30ML SOLN PO ONE (14:30)
[2018-10-15] MEDS ORDERED: POLYETHYLENE GLYCOL 17 GM PWDR PO ONE (14:30)
[2018-10-15] MEDS: TRAVOPROST 0.004% EACHEYE SCH (17:39)
[2018-10-15] MEDS: OPTH EACHEYE SCH (17:39)
[2018-10-15] MEDS: LATANOPROST 0.005 % OPTH(EYE) SOL 2.5ML EACHEYE SCH (21:50)
[2018-10-16 05:00] VITALS: BP 109/63
[2018-10-16] MEDS: ACCU-CHEK COMFORT CURVE STRIP VI SCH ×4 (06:30→21:13)
[2018-10-16] MEDS: InsuLIN REG 1unit/0.01ml Soln (100units/ml) SC SCH ×4 (06:30→21:13)
[2018-10-16] MEDS: ALBUTEROL SULF 2.5 MG/0.5ML(0.5%) NEB SOLN NEB SCH ×3 (07:00→19:05)
[2018-10-16] MEDS: IPRATROPIUM BROM 0.5 MG/2.5ML INH SOL NEB SCH ×3 (07:00→19:05)
[2018-10-16 07:03] LABS: Basophils # (auto) 0.1 uL; Eosinophils # (auto) 0.4 uL; Eosinophils % (auto) 5.3 % (0.0-7.0); Hematocrit 27.7 % (41.0-53.0); Hemoglobin 9.4 g/dL (13.5-17.5); Lymphocytes # (auto) 1.7 uL; Lymphocytes % (auto) 20.2 % (10.0-50.0); Mean Corpuscular Hgb Conc. 33.9 g/dL (32.0-36.0); Mean Corpuscular Volume 91.4 fL (80.0-100.0); Monocytes # (auto) 1.1 uL; Monocytes % (auto) 13.1 % (0.0-12.0); Neutrophils # (auto) 4.9 uL; Neutrophils % (auto) 60.4 % (37.0-80.0); Platelet Count (auto) 276 10^3/uL (140-450); Red Blood Cells 3.03 10^6/uL (4.5-5.90); Red Cell Distribution Width 14.7 % (11.8-14.3); White Blood Cell 8.2 10^3/uL (4.4-10.8)
[2018-10-16 07:19] LABS: INR 1.08 (0.9-1.15); Partial Thromboplastin Time 32.8 sec (23.64-32.05)
[2018-10-16 07:27] LABS: BUN/Creatinine Ratio 10.2; Potassium 3.9 mmol/L (3.5-5.1)
[2018-10-16 08:00] VITALS: BP 106/57
[2018-10-16] MEDS: DOXYCYCLINE 100MG/250ML 250 ML IV SCH ×2 (08:03→20:23)
[2018-10-16 09:00] VITALS: BP 106/51
[2018-10-16] MEDS ORDERED: PROPOFOL 10 MG/ML 20 ML IV ONE (09:47)
[2018-10-16] MEDS: FERROUS SULFATE 325 MG TAB PO SCH (10:00)
[2018-10-16] MEDS: LEVOTHYROXINE SODIUM 50 MCG TAB PO SCH (10:00)
[2018-10-16] MEDS: FAMOTIDINE 20 MG TAB PO SCH (10:00)
[2018-10-16] MEDS: cefTRIAXone 1GM/50ML D5W 50 ML IV SCH (10:00)
[2018-10-16] MEDS ORDERED: LIDOCAINE 2%HCL (LOCAL ANESTH.) INJ 20ML MDV ONE (12:21)
[2018-10-16] MEDS ORDERED: IODIXANOL 320MG/ML 100ML BTL IV ONE ×2 (12:21→12:31)
[2018-10-16] MEDS ORDERED: MIDAZOLAM HCL 1MG/1ML-2 ML VIAL ONE (12:30)
[2018-10-16] MEDS ORDERED: SODIUM CHL 0.9% 0 ML ONE (12:30)
[2018-10-16] MEDS: SODIUM CHLORIDE 0.9% 1,000 ML IV SCH (12:30)
[2018-10-16] MEDS ORDERED: ANGIOMAX 250 MG VIAL IV ONE (12:30)
[2018-10-16] MEDS ORDERED: fentaNYL CITRATE 100 MCG/2 ML VL ONE (12:30)
[2018-10-16] MEDS ORDERED: VERAPAMIL 2.5MG/ML INJ 2ML VIAL IV ONE (12:30)
[2018-10-16 17:16] VITALS: BP 143/59
[2018-10-16] MEDS: OPTH EACHEYE SCH (18:15)
[2018-10-16] MEDS: TRAVOPROST 0.004% EACHEYE SCH (18:15)
[2018-10-16 20:00] VITALS: BP 119/50
[2018-10-16] MEDS: LATANOPROST 0.005 % OPTH(EYE) SOL 2.5ML EACHEYE SCH (21:13)
[2018-10-16 22:00] VITALS: BP 119/50
[2018-10-17 04:52] VITALS: BP 118/68
[2018-10-17] MEDS: SODIUM CHLORIDE 0.9% 1,000 ML IV SCH ×2 (05:02→18:07)
[2018-10-17] MEDS: ACCU-CHEK COMFORT CURVE STRIP VI SCH ×4 (06:14→22:21)
[2018-10-17] MEDS: InsuLIN REG 1unit/0.01ml Soln (100units/ml) SC SCH ×4 (06:14→22:00)
[2018-10-17] MEDS: ALBUTEROL SULF 2.5 MG/0.5ML(0.5%) NEB SOLN NEB SCH ×3 (06:31→19:20)
[2018-10-17] MEDS: IPRATROPIUM BROM 0.5 MG/2.5ML INH SOL NEB SCH ×3 (06:32→19:20)
[2018-10-17] MEDS: DOXYCYCLINE 100MG/250ML 250 ML IV SCH ×2 (08:38→20:24)
[2018-10-17 09:00] VITALS: BP 112/53
[2018-10-17] MEDS: cefTRIAXone 1GM/50ML D5W 50 ML IV SCH (09:34)
[2018-10-17] MEDS: FERROUS SULFATE 325 MG TAB PO SCH (09:35)
[2018-10-17] MEDS: FAMOTIDINE 20 MG TAB PO SCH (09:35)
[2018-10-17] MEDS: LEVOTHYROXINE SODIUM 50 MCG TAB PO SCH (09:35)
[2018-10-17] MEDS ORDERED: VANCOMYCIN PER PHARMACY 0 MG IV SCH (10:45)
[2018-10-17] MEDS ORDERED: VANCOMYCIN 1GM/250ML 250 ML IV ONE (10:45)
[2018-10-17 13:00] VITALS: BP 121/61
[2018-10-17] MEDS: PIPERACILLIN-TAZOB 3.375GM 100 ML IV SCH ×2 (15:15→18:07)
[2018-10-17 17:00] VITALS: BP 122/54
[2018-10-17] MEDS: TRAVOPROST 0.004% EACHEYE SCH (18:07)
[2018-10-17] MEDS: OPTH EACHEYE SCH (18:07)
[2018-10-17 20:00] VITALS: BP 115/53
[2018-10-17 22:00] VITALS: BP 115/53
[2018-10-17] MEDS: LATANOPROST 0.005 % OPTH(EYE) SOL 2.5ML EACHEYE SCH (22:21)
[2018-10-18] VITALS (7 sets, daily range): BP systolic 95–118; BP diastolic 55–78
[2018-10-18] MEDS: PIPERACILLIN-TAZOB 3.375GM 100 ML IV SCH ×3 (00:13→12:00)
[2018-10-18] MEDS: ACCU-CHEK COMFORT CURVE STRIP VI SCH ×2 (06:34→11:30)
[2018-10-18] MEDS: InsuLIN REG 1unit/0.01ml Soln (100units/ml) SC SCH ×2 (06:35→11:30)
[2018-10-18] MEDS: ALBUTEROL SULF 2.5 MG/0.5ML(0.5%) NEB SOLN NEB SCH ×2 (06:40→11:18)
[2018-10-18] MEDS: IPRATROPIUM BROM 0.5 MG/2.5ML INH SOL NEB SCH ×2 (06:40→11:18)
[2018-10-18] MEDS: DOXYCYCLINE 100MG/250ML 250 ML IV SCH (09:03)
[2018-10-18] MEDS: SODIUM CHLORIDE 0.9% 1,000 ML IV SCH (09:03)
[2018-10-18] MEDS ORDERED: VANCOMYCIN 1GM/250ML 250 ML IV SCH (10:00)
[2018-10-18] MEDS: FAMOTIDINE 20 MG TAB PO SCH (10:05)
[2018-10-18] MEDS: FERROUS SULFATE 325 MG TAB PO SCH (10:05)
[2018-10-18] MEDS: LEVOTHYROXINE SODIUM 50 MCG TAB PO SCH (10:05)
[2018-10-18] MEDS ORDERED: POLYETHYLENE GLYCOL 17 GM PWDR PO ONE (13:45)
[2018-10-18] MEDS ORDERED: LACTULOSE 20Gm/30ML SOLN PO ONE (13:45)
== END 2018-10-18 18:25 | disposition home health service (06) | DRG 698 ==
LOC: ER 16:29 → TELE 16:30 → TELE-WESTW 22:15
PROVIDERS: ADMIT Nurse Practitioner Acute Care; ATTEND Internal Medicine
PROC: 0TJB8ZZ Inspection of Bladder, Via Natural or Artificial Opening Endoscopic (ICD-10-PCS; principal; 2018-10-15 09:52)
PROC: B2111ZZ Fluoroscopy of Multiple Coronary Arteries using Low Osmolar Contrast (ICD-10-PCS; 2018-10-16)
PROC: 4A033BC Measurement of Arterial Pressure, Coronary, Percutaneous Approach (ICD-10-PCS; 2018-10-16)
DX: T83.511A Infection and inflammatory reaction due to indwelling urethral catheter, initial encounter (principal); A41.9 Sepsis, unspecified organism; J18.1 Lobar pneumonia, unspecified organism; N17.0 Acute kidney failure with tubular necrosis; R65.20 Severe sepsis without septic shock; E44.0 Moderate protein-calorie malnutrition; I13.0 Hypertensive heart and chronic kidney disease with heart failure and stage 1 through stage 4 chronic kidney disease, or unspecified chronic kidney disease; L03.114 Cellulitis of left upper limb; N39.0 Urinary tract infection, site not specified; D63.1 Anemia in chronic kidney disease; N18.3 Chronic kidney disease, stage 3 (moderate); E11.22 Type 2 diabetes mellitus with diabetic chronic kidney disease; E78.5 Hyperlipidemia, unspecified; I25.10 Atherosclerotic heart disease of native coronary artery without angina pectoris; I49.5 Sick sinus syndrome; I50.9 Heart failure, unspecified; M19.90 Unspecified osteoarthritis, unspecified site; N31.9 Neuromuscular dysfunction of bladder, unspecified; R31.0 Gross hematuria; R33.8 Other retention of urine; Y84.6 Urinary catheterization as the cause of abnormal reaction of the patient, or of later complication, without mention of misadventure at the time of the procedure; Z79.02 Long term (current) use of antithrombotics/antiplatelets; Z79.82 Long term (current) use of aspirin; Z79.84 Long term (current) use of oral hypoglycemic drugs; Z82.3 Family history of stroke; Z82.49 Family history of ischemic heart disease and other diseases of the circulatory system; Z83.3 Family history of diabetes mellitus; Z95.0 Presence of cardiac pacemaker; Z95.5 Presence of coronary angioplasty implant and graft; Z90.49 Acquired absence of other specified parts of digestive tract; Y92.89 Other specified places as the place of occurrence of the external cause; Z68.22 Body mass index [BMI] 22.0-22.9, adult; Z79.899 Other long term (current) drug therapy
CPT/HCPCS: 0523T; 93454; 96365; 99285; 36415; 71045; 78452; 80048; 80053; 81001; 82565; 82962; 83605; 83735; 84154; 84484; 85014; 85018; 85025; 85610; 85730; 86850; 86900; 86901; 87040; 87081; 87086; 93005; 93017; 93306; 93971; 94640; 94761; 97163; G0378; J0153; J0696; J2001; J2250; J2405; J2543; J2704; J3490; Q9967

== ENCOUNTER → 2019-01-11 | Outpatient (CLI) | payer OTHER ==
[2019-01-11 14:37] LABS: Basophils # (auto) 0.1 uL; Basophils % (auto) 1.5 % (0.0-2.0); Eosinophils # (auto) 0.6 uL; Eosinophils % (auto) 9.1 % (0.0-7.0); Hematocrit 31.7 % (41.0-53.0); Hemoglobin 10.6 g/dL (13.5-17.5); Lymphocytes # (auto) 1.6 uL; Lymphocytes % (auto) 26.8 % (10.0-50.0); Mean Corpuscular Hemoglobin 30.9 pg (28.0-32.0); Mean Corpuscular Hgb Conc. 33.3 g/dL (32.0-36.0); Mean Corpuscular Volume 92.8 fL (80.0-100.0); Monocytes # (auto) 0.7 uL; Monocytes % (auto) 10.9 % (0.0-12.0); Neutrophils # (auto) 3.1 uL; Neutrophils % (auto) 51.7 % (37.0-80.0); Platelet Count (auto) 264 10^3/uL (140-450); Red Blood Cells 3.42 10^6/uL (4.5-5.90); Red Cell Distribution Width 16.2 % (11.8-14.3); White Blood Cell 6.1 10^3/uL (4.4-10.8)
[2019-01-11 15:04] LABS: Calcium 8.6 mg/dL (8.5-10.1); Potassium 4.4 mmol/L (3.5-5.1)
== END | disposition home or self-care (01) ==
LOC: LAB 14:01
PROVIDERS: ATTEND Internal Medicine
DX: E78.5 Hyperlipidemia, unspecified (principal); D64.9 Anemia, unspecified; E11.22 Type 2 diabetes mellitus with diabetic chronic kidney disease; N18.2 Chronic kidney disease, stage 2 (mild); I50.9 Heart failure, unspecified; Z87.891 Personal history of nicotine dependence; Z98.890 Other specified postprocedural states; Z82.3 Family history of stroke; Z82.49 Family history of ischemic heart disease and other diseases of the circulatory system
CPT/HCPCS: 36415; 80048; 83036; 85025

== ENCOUNTER → 2019-02-08 | Outpatient (CLI) | payer OTHER ==
[2019-02-08 14:17] LABS: BUN/Creatinine Ratio 17.4; Calcium 8.4 mg/dL (8.5-10.1); Potassium 4.2 mmol/L (3.5-5.1)
== END | disposition home or self-care (01) ==
LOC: LAB 13:37
PROVIDERS: ATTEND Internal Medicine
DX: E11.22 Type 2 diabetes mellitus with diabetic chronic kidney disease (principal); I13.0 Hypertensive heart and chronic kidney disease with heart failure and stage 1 through stage 4 chronic kidney disease, or unspecified chronic kidney disease; N18.3 Chronic kidney disease, stage 3 (moderate); I50.9 Heart failure, unspecified
CPT/HCPCS: 36415; 80048

== ENCOUNTER → 2019-03-04 | Outpatient (CLI) | payer OTHER ==
[2019-03-04 14:34] LABS: BUN/Creatinine Ratio 17.9; Calcium 9.2 mg/dL (8.5-10.1); Potassium 4.4 mmol/L (3.5-5.1)
== END | disposition home or self-care (01) ==
LOC: LAB 11:49
PROVIDERS: ATTEND Internal Medicine
DX: E11.9 Type 2 diabetes mellitus without complications (principal); E03.9 Hypothyroidism, unspecified
CPT/HCPCS: 36415; 80048; 84443

== ENCOUNTER 2020-05-10 15:21 | Emergency (ER) | payer OTHER ==
[~2020-05-10] VITALS: Ht 182.9 cm; Wt 72.6 kg
[~2020-05-10 15:21] MED LIST changes: -CLOP75TA41 PO; +CLOP75TA70 PO; -LATA0.0015 EACHEYE; +LATA0.0019 EACHEYE; -LEVO750T2 PO; +LEVO750T8 PO
[2020-05-10 16:37] LABS: Basophils # (auto) 0.1 10 ^3/uL (0-0.2); Basophils % (auto) 0.7 % (0.0-2.0); Eosinophils # (auto) 0.3 10 ^3/uL (0-0.8); Eosinophils % (auto) 2.9 % (0.0-7.0); Hematocrit 31.1 % (41.0-53.0); Hemoglobin 10.3 g/dL (13.5-17.5); Lymphocytes # (auto) 1.8 10 ^3/uL (0.4-5.4); Lymphocytes % (auto) 15.7 % (10.0-50.0); Mean Corpuscular Hemoglobin 30.9 pg (28.0-32.0); Mean Corpuscular Hgb Conc. 33.1 g/dL (32.0-36.0); Mean Corpuscular Volume 93.3 fL (80.0-100.0); Monocytes % (auto) 8.7 % (0.0-12.0); Platelet Count (auto) 255 10^3/uL (140-450); Red Blood Cells 3.34 10^6/uL (4.5-5.90); Red Cell Distribution Width 15.4 % (11.8-14.3); White Blood Cell 11.2 10^3/uL (4.4-10.8)
[2020-05-10 16:53] LABS: Calcium 8.3 mg/dL (8.5-10.1); Chloride 109 mmol/L (98-107); Potassium 3.4 mmol/L (3.5-5.1); Sodium 139 mmol/L (136-145)
[2020-05-10 16:58] LABS: INR 1.06 (0.9-1.15); Partial Thromboplastin Time 26.7 sec (23.0-31.2)
[2020-05-10 17:02] LABS: Alanine Aminotransferase 28 U/L (16-61); Albumin 3.6 g/dL (3.4-5.0); Alkaline Phosphatase 71 U/L (45-117); Anion Gap 9 (5-15); Aspartate Aminotransferase 32 U/L (15-37); BUN/Creatinine Ratio 16.7; Bilirubin, Total 0.6 mg/dL (0.2-1.0); Blood Urea Nitrogen 23 mg/dL (7-18); Carbon Dioxide 21 mmol/L (21-32); GFR African American 62 mL/min; GFR Non-African American 52 mL/min; Glucose 111 mg/dL (74-106); Magnesium 2.1 mg/dL (1.6-2.6); Total Protein 7.6 g/dL (6.4-8.2)
[2020-05-10 21:05] VITALS: BP 133/63
== END 2020-05-10 21:47 | disposition short-term general hospital (02) ==
LOC: ER 15:21 → EDBD 15:21 → ER 21:47
DX: S01.112A Laceration without foreign body of left eyelid and periocular area, initial encounter (principal); S41.112A Laceration without foreign body of left upper arm, initial encounter; R41.2 Retrograde amnesia; E87.6 Hypokalemia; E11.22 Type 2 diabetes mellitus with diabetic chronic kidney disease; N18.9 Chronic kidney disease, unspecified; D63.1 Anemia in chronic kidney disease; I25.10 Atherosclerotic heart disease of native coronary artery without angina pectoris; I50.9 Heart failure, unspecified; I25.2 Old myocardial infarction; Z20.822 Contact with and (suspected) exposure to COVID-19; Z95.0 Presence of cardiac pacemaker; Z98.61 Coronary angioplasty status; Z79.899 Other long term (current) drug therapy; W18.39XA Other fall on same level, initial encounter; Y93.01 Activity, walking, marching and hiking; Y92.89 Other specified places as the place of occurrence of the external cause; Y99.8 Other external cause status
CPT/HCPCS: 36415; 70450; 71045; 72125; 80053; 82962; 83735; 84443; 84484; 85025; 85610; 85730; 87426; 93005; 99285; C9803; U0003